=== PATIENT | male | born 1995 | race Caucasian/White ===

== ENCOUNTER → 2017-02-23 | Outpatient (CLI) | payer OTHER | LOC: COL.RAD 09:30 | DX: N35.9 Urethral stricture, unspecified (principal) | CPT/HCPCS: Q9967 ==

== ENCOUNTER 2017-12-28 07:32 | Day surgery (SDC) | payer OTHER ==
[2017-12-28] VITALS (9 sets, daily range): BP systolic 102–126; BP diastolic 56–76; PULSE 49–77; TEMP 97.1–98.2
[~2017-12-28] VITALS: Ht 175.3 cm; Wt 64.5 kg
[2017-12-28] MEDS ORDERED: LUNESTA2 MG PO (07:52)
[2017-12-28] MEDS ORDERED: LIDODERM 5% PATC1 EA TP (07:53)
[2017-12-28] MEDS ORDERED: BACTRIM DS 8001 TAB PO (11:49)
[2017-12-28] MEDS ORDERED: NORCO 325 MG-51 TAB PO (11:50)
[2017-12-28] MEDS ORDERED: SENOKOT S 50 MG1 TAB PO (11:50)
== END 2017-12-28 15:00 | disposition home or self-care (01) ==
LOC: SDCO 07:32
DX: N35.013 Post-traumatic anterior urethral stricture (principal); R30.0 Dysuria; R39.12 Poor urinary stream; R39.16 Straining to void
CPT/HCPCS: C1769; J0690; J2405; J2704; J3010; J7120; Q9967